=== PATIENT | male | born 1955 | race African-American/Black ===

== ENCOUNTER → 2018-03-14 | Outpatient (CLI) | payer OTHER ==
[~2018-03-14] MED LIST: ADVAIR HFA 230M12 GM INH; ALLOPURINOL 10100 M1; AUGMENTIN 875875 MG PO; FLONASE16 GM; METFORMIN HCL500 MG PO; METFORMIN HYDR100 GM; NEURONTIN 300M300 M2; NORCO 5-325 TA1 EACH PO; PHENERGAN 25 MG25 M1 PO; PROAIR HFA8.5 GM; SIMVASTATIN40 MG PO; SIMVASTATIN5 MG; ZANTAC 150MG T150 M1
== END ==
LOC: RAD 10:06
DX: N20.1 Calculus of ureter (principal); I10 Essential (primary) hypertension; E11.9 Type 2 diabetes mellitus without complications

== ENCOUNTER → 2018-08-30 | Outpatient (CLI) | payer OTHER ==
--- NOTE | 2018-08-30 13:41 | EKG ---
[address] [address] ELECTROCARDIOGRAM REPORT Name: CIPRIANOCLEVE Room #: REG CLCesar Fajardo#: [id number] Admission: 08/30/18 Attend Phys: Leann Roach MD Discharge: Date of : 53 Report #: [id number] THIS REPORT FOR: //name// [facility] Test Date: 2018-08-30 Test Time: 10:42:40 Pat Name: CLEVE COTA Department: Room: Gender: Regulatory Affairs Associate: Troy GOODMAN : 1955 Requested By: Leann Roach Order Number: [id number] MD: Jono Wheat Measurements Intervals [place] Rate: 90 P: 73 MO: 163 QRS: 37 QRSD: 92 T: -37 QT: 351 QTc: 430 Interpretive Statements Sinus rhythm Consider left atrial enlargement Left ventricular hypertrophy Nonspecific T abnormalities, inferior leads Compared to ECG 02/18/2018 18:00:07 No significant changes Electronically Signed On 08-30-2018 13:41:05 ACID CUTTER by Jono Wheat [email or web address] <ELECTRONICALLY SIGNED> By: Jono Wheat MD 08/30/18 1341 104 104 Jono Wheat MD /BHARATH
== END ==
LOC: CV 09:55
DX: Z01.818 Encounter for other preprocedural examination (principal); I51.7 Cardiomegaly; E11.9 Type 2 diabetes mellitus without complications

== ENCOUNTER → 2020-12-13 | Outpatient (CLI) | payer OTHER | LOC: SJCVC 13:56 | PROVIDERS: ATTEND Internal Medicine | DX: R94.31 Abnormal electrocardiogram [ECG] [EKG] (principal); R06.00 Dyspnea, unspecified; I44.7 Left bundle-branch block, unspecified; E78.5 Hyperlipidemia, unspecified; E11.9 Type 2 diabetes mellitus without complications; J44.9 Chronic obstructive pulmonary disease, unspecified; G47.30 Sleep apnea, unspecified; Z79.84 Long term (current) use of oral hypoglycemic drugs; Z79.899 Other long term (current) drug therapy; Z87.891 Personal history of nicotine dependence ==

== ENCOUNTER → 2020-12-27 | Outpatient (CLI) | payer OTHER | LOC: SJCVCIMAG 07:30 | PROVIDERS: ATTEND Internal Medicine | DX: I08.3 Combined rheumatic disorders of mitral, aortic and tricuspid valves (principal); I44.7 Left bundle-branch block, unspecified; I50.22 Chronic systolic (congestive) heart failure; I42.9 Cardiomyopathy, unspecified; E78.5 Hyperlipidemia, unspecified; E11.9 Type 2 diabetes mellitus without complications; J44.9 Chronic obstructive pulmonary disease, unspecified; J45.909 Unspecified asthma, uncomplicated; I34.0 Nonrheumatic mitral (valve) insufficiency; Z87.891 Personal history of nicotine dependence; Z79.899 Other long term (current) drug therapy; R06.00 Dyspnea, unspecified ==

== ENCOUNTER → 2021-01-12 | Outpatient (CLI) | payer OTHER ==
[~2021-01-12] VITALS: Ht 180.3 cm; Wt 95.7 kg
[~2021-01-12] MED LIST changes: +CARVEDILOL6.25 M1 PO; +COZAAR 25 MG TA25 M1 PO; +FLOMAX0.4 MG PO; +KLOR-CON M2020 MEQ PO; +SIMVASTATIN80 MG PO; +TORSEMIDE20 MG PO; +VIAGRA100 MG PO; +[UNRECOGNIZED DRUG - OTHER] PO
[2021-01-12 07:18] VITALS: BP 125/75
[2021-01-12 07:44] LABS: HEMATOCRIT 42.9 % (42.0-52.0); HEMOGLOBIN 14.3 gm/dL (14.0-18.0); MCH 29.9 pg (26.0-34.0); MCHC 33.3 g/dL (28.0-37.0); RBC 4.76 mil/uL (4.50-6.00); RDW 14.1 % (10.5-14.5); WBC 5.5 thou/uL (4.0-11.0)
--- NOTE | 2021-01-12 12:57 | CATHLAB ---
[facility] [place] [address] INVASIVE PROCEDURE REPORT Name: CLEVE COTA Room #: REG DULCE Carvajal.#: [id number] Admission: 01/12/21 Attend Phys: Carlos Farley MD, Discharge: Date of : 53 Report #: [id number] THIS REPORT FOR: cc: Héctor Martell MD, Neal A. MD Lundgren, Craig H. MD [facility] ~ APPROVED REPORT Study performed: 01/12/2021 08:28:09 Patient Details Patient Status: Out-Patient Room #: Event Personnel Jacky Holloway Dexter RN, Taya Taylor RTR, Emmy Reyes RTR Procedures Performed [facility], Art Access- R femoral artery, Initial MOD Sed Same Phys/QHP Indication Chest pain Procedure Narrative The patient was brought electively to the Cardiac Catheterization Laboratory and was prepped and draped in a sterile manner. A 6 FR sheath was inserted into the RFA. Coronary angiography was performed using coronary diagnostic catheters. The right coronary system was accessed and visualized with a 6 FR JR4 catheter. The left coronary system was accessed and visualized with a 6 FR JL4 catheter. The left ventricle was accessed and visualized with a 6 FR ANGLED PIGTAIL catheter. Left ventricular/Aortic Valve gradient assessed via catheter pullback. Left ventriculogram was performed in 30 degree projection. Closure device was deployed with a 6 Fr MYNXGRIP. There was no hematoma. Intraoperative Conscious Sedation Sedation start time: 9:19 Case end Time: 9:44 Fentanyl 50.0 mcg Versed 1.0 mg Fluoro Time: 1.8 minutes Dose: DAP 6150.08 cGycm2 798 mGy [facility] [place] [address] INVASIVE PROCEDURE REPORT Name: CLEVE COTA Room #: REG [facility]#: [id number] Admission: 01/12/21 Attend Phys: Carlos Farley, Discharge: Date of : 53 Report #: [id number] Contrast Type and Amount: OMNIIPAQUE 110ml Coronary Angiography The patient's coronary anatomy is right dominant. Diagnostic Cath Left Main Normal left main LAD Normal left anterior descending Diagonal 1 Small, normal first diagonal branch Diagonal 2 Normal second diagonal branch Diagonal 3 Normal third diagonal branch Circumflex Large but nondominant circumflex. OM1 Large first marginal branch, angiographically normal OM2 Large bifurcating second marginal branch, normal Right Coronary Dominant right coronary, angiographically normal R PDA Normal posterior descending Left Ventriculography The left ventricle is mildly dilated in size with abnormal contractility. The left ventricular ejection fraction is estimated to be 25-30%. Left ventricular wall motion abnormalities are not present. There is no mitral insufficiency. Hemodynamics The aortic pressure is 110 mmHg with a mean of 62 mmHg. The left ventricular pressure is 111/14 mmHg with a mean of 20 mmHg. The left ventricular end diastolic pressure is 116/17 mmHg. Pullback from the left ventricle to the aorta revealed no gradient across the aortic valve. Conclusion 1. Severe global left ventricular dysfunction. EF 25-30% 2. Normal left main 3. Normal coronary vasculature. Right coronary dominant circulation Recommendations Aggressive Medical Therapy <ELECTRONICALLY SIGNED> By: Carlos Farley MD, FACC 01/12/21 1256 1256 1256 Carlos Farley MD, FACC /INF
== END | disposition home or self-care (01) ==
LOC: CATH 01-05 07:37
PROVIDERS: ATTEND Internal Medicine
DX: R07.9 Chest pain, unspecified (principal); I25.10 Atherosclerotic heart disease of native coronary artery without angina pectoris; E11.9 Type 2 diabetes mellitus without complications; J44.9 Chronic obstructive pulmonary disease, unspecified; M10.9 Gout, unspecified; N40.0 Benign prostatic hyperplasia without lower urinary tract symptoms; Z98.890 Other specified postprocedural states; Z79.899 Other long term (current) drug therapy; Z87.19 Personal history of other diseases of the digestive system; Z87.891 Personal history of nicotine dependence; Z87.01 Personal history of pneumonia (recurrent)

== ENCOUNTER → 2021-04-15 | Outpatient (CLI) | payer OTHER | LOC: SJCVCIMAG 07:57 | PROVIDERS: ATTEND Internal Medicine | DX: R94.31 Abnormal electrocardiogram [ECG] [EKG] (principal); I34.0 Nonrheumatic mitral (valve) insufficiency; I44.7 Left bundle-branch block, unspecified; G47.30 Sleep apnea, unspecified; I50.22 Chronic systolic (congestive) heart failure; I42.9 Cardiomyopathy, unspecified; E78.5 Hyperlipidemia, unspecified; E11.9 Type 2 diabetes mellitus without complications; J44.9 Chronic obstructive pulmonary disease, unspecified; I73.9 Peripheral vascular disease, unspecified; Z87.891 Personal history of nicotine dependence; Z79.899 Other long term (current) drug therapy; Z79.2 Long term (current) use of antibiotics; Z79.84 Long term (current) use of oral hypoglycemic drugs; Z79.891 Long term (current) use of opiate analgesic ==

== ENCOUNTER 2021-05-12 06:27 | Observation (INO) | payer OTHER ==
[~2021-05-12] VITALS: Ht 180.3 cm; Wt 93.4 kg
[~2021-05-12 06:27] MED LIST changes: -ALLOPURINOL 10100 M1; +ALLOPURINOL 10100 M1 PO
[2021-05-12 07:28] VITALS: BP 119/66
[2021-05-12 07:33] LABS: ABSOLUTE NEUTROPHILS 2.5 thou/uL (1.4-8.2); BASOPHILS 0.8 % (0.0-2.0); EOSINOPHILS 2.9 % (0.0-3.0); HEMATOCRIT 40.7 % (42.0-52.0); HEMOGLOBIN 13.3 gm/dL (14.0-18.0); MCHC 32.7 g/dL (28.0-37.0); MCV 91.8 fL (80.0-100.0); MONOCYTES 8.4 % (1.0-8.0); PLATELET COUNT 195 thou/uL (150-400); POLYS 47.9 % (36.0-66.0); RBC 4.44 mil/uL (4.50-6.00); RDW 14.1 % (10.5-14.5); WBC 5.2 thou/uL (4.0-11.0)
[2021-05-12 07:34] LABS: POTASSIUM 3.9 mmol/L (3.5-5.1)
[2021-05-12 07:41] LABS: APTT 28.5 Seconds (24.5-32.8); INR 1.03; PROTIME 11.2 Seconds (10.5-12.1); TOTAL BILIRUBIN 0.6 mg/dL (0.2-1.0); TOTAL PROTEIN 7.4 g/dL (6.4-8.2)
--- NOTE | 2021-05-12 08:10 | EKG ---
[place] [address] [facility] [place] [address] ELECTROCARDIOGRAM REPORT Name: CLEVE COTA MATTHEW [id number] Admission: 05/12/21 Attend Phys: Jono Wheat MD Discharge: Date of : 53 Report #: [id number] [facility] Test Date: 2021-05-12 Test Time: 08:07:05 Pat Name: CLEVE COTA Department: Room: Gender: Civil Designer: GENNY : 1955 Requested By: Jono Wheat Order Number: [id number] MD: Carlos Farley Measurements Intervals [place] Rate: 69 P: 67 ME: 166 QRS: 6 QRSD: 168 T: -46 QT: 479 QTc: 514 Interpretive Statements Sinus rhythm Left bundle branch block Compared to ECG 08/30/2018 10:42:40 Left bundle-branch block now present Electronically Signed On 05-12-2021 8:10:19 CDT by Carlos Farley [email or web address] <ELECTRONICALLY SIGNED> By: Carlos Farley MD, [facility] 05/12/21809 08 6 Carlos Farley MD, FACC /EPI
[2021-05-12 11:55] VITALS: BP 113/71
[2021-05-12 15:35] VITALS: BP 102/57
--- NOTE | 2021-05-12 15:54 | NUR ---
TOOK OVER CARE FOR THIS PATIENT AT 0700. PT ON BEDREST UNTIL RIGHT GROIN ULTRASOUND COMPLETE. PATIENT VITAL SIGNS STABLE. PATIENT DENIES SHORTNESS OF BREATH OR CHEST PAIN. PATIENT DENIES PAIN, DIZZINESS, HEADACHE, OR FATIGUE. PATIENT'S SPOUSE PRESENT AT THIS TIME. DISCHARGE EDUCATION PROVIDED ON FOLLOW-UP CARE AND NEW MEDICATIONS. PATIENT DENIES ANY QUESTIONS AT THIS TIME. PATIENT DISCHARGED VIA WHEELCHAIR BY NURSING STAFF ACCOMPANIED BY SPOUSE VIA PERSONAL VEHICLE.
--- NOTE | 2021-05-12 15:57 | NUR ---
PATIENT TRANSFERRED TO CCU FROM POST-OP. PATIENT RESTING COMFORTABLY IN BED AT THIS TIME WITH SPOUSE PRESENT. VITAL SIGNS STABLE. PATIENT DENIES CHEST PAIN. PATIENT IS ON ROOM AIR; DENIES SHORTNESS OF AIR. DENIES HEADACHE, DIZZINESS, AND FATIGUE. PATIENT AxOx4 AND ANSWERS QUESTIONS APPROPRIATLEY. FALL PRECAUTIONS ARE IN PLACE AND CALL LIGHT WITHIN REACH.
[2021-05-12 19:10] VITALS: BP 128/64
[2021-05-12 23:44] VITALS: BP 136/84
[2021-05-13 04:37] VITALS: BP 142/79
[2021-05-13 04:38] VITALS: BP 142/79
--- NOTE | 2021-05-13 05:58 | NUR ---
Assumed pt's care this pm shift. Alert and oriented x4. VSS on RA. Home cpap at HS. Pacemaker site [employer], C/D/I. Pt slept well. Tylenol given x1 this shift for soreness at pacemaker incision site. L/arm immobilizer remained in place this shift. Pt makes need known. No s/sx of acute distress noted this shift. SCDs to BLE. Fall precaution in place. Call light within reach. Nursing to continue to monitor.
[2021-05-13 07:50] VITALS: BP 118/80
[2021-05-13 11:28] VITALS: BP 118/80
[2021-05-13 12:00] VITALS: BP 111/79
[2021-05-13 12:04] VITALS: BP 118/80
--- NOTE | 2021-05-13 13:42 | NUR ---
TOOK OVER CARE OF THIS PATIENT AT 0700. PATIENT RESTING COMFORTABLY IN BED AT THIS TIME. PATIENT ON ROOM AIR; DENIES SHORTNESS OF AIR. PATIENT DENIES CHEST PAIN. PACEMAKER WAS INTEGRATED THIS MORNING AND PATIENT SPOKE WITH CARDIOLOGY NURSE PRACTITIONER REGARDING FOLLOW-UP CARE. FAMILY MEMBER PRESENT AT THIS TIME FOR DISCHARGE EDUCATION. EDUCATION PROVIDED TO PATIENT REGARDING FOLLOW-UP CARE AND STROKE EDUATION. PATIENT DISCHARGED VIA WHEELCHAIR WITH FAMILY MEMBER PRESENT AND NURSING STAFF VIA PERSONAL VEHICLE.
--- NOTE | 2021-05-18 13:05 | P ---
[facility] [place] [address] PROCEDURE REPORT Name: CLEVE COTA Room #: 212-P [facility] Tomi Fajardo#: [id number] Admission: 05/12/21 Attend Phys: Jono Wheat MD Discharge: 05/13/21 Date of : 53 Report #: [id number] THIS REPORT FOR: cc: Héctor Martell MD, Neal A. MD Couchonnal,Jono Rosas MD ~ DATE OF SERVICE: 05/12/2021 PROCEDURE: Bi-V ICD implantation. PREOPERATIVE DIAGNOSES: 1. Nonischemic cardiomyopathy. 2. Chronic left ventricular systolic heart failure. 3. [place] [employer] functional class 3 heart failure symptoms. 4. Left bundle branch block. POSTOPERATIVE DIAGNOSES: 1. Nonischemic cardiomyopathy. 2. Chronic left ventricular systolic heart failure. 3. [place] [employer] functional class 3 heart failure symptoms. 4. Left bundle branch block. HISTORY: The patient is a 65-year-old male with a history of a nonischemic cardiomyopathy, EF of less than 35% with [place] [employer] functional class 3 heart failure symptoms and a left bundle branch block with a QRS duration of 160 milliseconds, who has been on optimal medical therapy for over three months. He is here for biventricular ICD implantation for primary prevention of sudden cardiac . ANESTHESIA: The patient underwent MAC anesthesia with no anesthesia related complications. DESCRIPTION OF PROCEDURE: The patient underwent informed consent. We discussed the details of the procedure including the risks, which include but not limited to bleeding, infection, vascular damage, cardiac perforation, pneumothorax. He understood these risks and is willing to proceed. The patient was brought to the EP laboratory in a fasting and sedated state, prepped and draped in standard fashion. He underwent a venogram showing patency of left axillary vein and received IV antibiotics prior to initiation of the procedure. Next, lidocaine was injected below the level of left clavicle. Incision was made, pocket was created over the prepectoral fascia and access was obtained 3 times of left axillary vein using the extrathoracic approach. Sheaths were positioned using the modified Seldinger technique. Next, RV lead and an atrial lead were positioned and sutured to the prepectoral fascia with adequate pacing and sensing thresholds. Next, when I was attempting to advance [facility] [address] [place] [address] PROCEDURE REPORT Name: CLEVE COTA MATTHEW Room #: 212-P [facility] Tomi Fajardo#: [id number] Admission: 05/12/21 Attend Phys: Jono Wheat MD Discharge: 05/13/21 Date of : 53 Report #: [id number] the coronary sinus guide sheath, this dislodged the atrial lead. In fact, the atrial lead dislodged several times when I would advance the coronary guide sheath. Eventually, I decided to go ahead and position the LV lead first, which I was able to place using a coronary guide sheath and an inner sheath into the anterolateral branch with adequate pacing and sensing thresholds. Before splitting the outer sheath, I repositioned the atrial lead and then I split the coronary sinus guide sheath and the 9-[place] short sheath that was at the subclavian position. All leads were tested and found to be functioning normally and all leads were sutured to the prepectoral fascia. Next, the device was connected to the leads. Tug test performed. Pocket was irrigated with vancomycin and pocket closed in 2 layers using 2-0 for the deep layer, 3-0 for the middle layer and surgical glue was placed to outer skin layer. The patient awoke neurologically and hemodynamically intact. No complications. No significant bleeding. The implanted device and leads were manufactured by [employer]. The device was a model #[id number], serial #[id number]. The atrial lead was a 5076, 52 cm, serial number [id number]. RV lead was a 6935, 62 cm, serial #[id number]. The LV lead was a 49, LV lead was a 4298, serial #[id number]. Atrial lead demonstrated P waves of 4.3 millivolts, pacing impedance 546 ohms, pacing threshold 0.4 volts at 0.5 milliseconds. The RV lead demonstrated R waves of 12.8 millivolts, pacing impedance of 770 ohms, and pacing threshold was 0.4 volts at 0.5 milliseconds. The LV lead demonstrated a pacing impedance of 963 ohms, pacing threshold 0.4 volts at 0.5 milliseconds. Pacing from the LV1-LV2 pacing configuration. There was no diaphragmatic stimulation at 10 volts, pacing. The device was programmed to the DDDR 60-130 mode with the LV lead programmed to pace 20 milliseconds prior to the LV lead, which resulted in a QRS of 115 milliseconds, improved from 160 milliseconds at baseline. The VT zone was set at 180-220 beats per minute with three rounds of burst followed by 3 rounds of ramp followed by max output shocks. VF zone was set at greater than 220 beats per minute with ATP while charging followed by max output shocks. CONCLUSION: 1. Successful BiV ICD implantation. 2. Satisfactory atrial, right ventricular, and left ventricular pacing and sensing thresholds. <ELECTRONICALLY SIGNED> By: Jono Wheat MD 05/18/21 1305 1249 2152 Jono Wheat MD /noah
== END 2021-05-13 14:00 | disposition home or self-care (01) ==
LOC: 2N 06:27 → CATH 06:27 → 2N 16:26
PROVIDERS: ADMIT Internal Medicine Cardiovascular Disease; ATTEND Internal Medicine Cardiovascular Disease
DX: I42.8 Other cardiomyopathies (principal); I11.0 Hypertensive heart disease with heart failure; I50.22 Chronic systolic (congestive) heart failure; Z20.822 Contact with and (suspected) exposure to COVID-19; I44.7 Left bundle-branch block, unspecified; E11.9 Type 2 diabetes mellitus without complications; G47.33 Obstructive sleep apnea (adult) (pediatric); E78.5 Hyperlipidemia, unspecified; Z79.84 Long term (current) use of oral hypoglycemic drugs; Z79.899 Other long term (current) drug therapy
CPT/HCPCS: 70005

== ENCOUNTER → 2021-08-16 | Outpatient (CLI) | payer OTHER | LOC: SJCVC 08:49 | PROVIDERS: ATTEND Internal Medicine Cardiovascular Disease | DX: R94.31 Abnormal electrocardiogram [ECG] [EKG] (principal); I45.4 Nonspecific intraventricular block; I50.22 Chronic systolic (congestive) heart failure; I44.7 Left bundle-branch block, unspecified; I42.9 Cardiomyopathy, unspecified; G47.30 Sleep apnea, unspecified; Z95.810 Presence of automatic (implantable) cardiac defibrillator; Z79.84 Long term (current) use of oral hypoglycemic drugs; Z79.899 Other long term (current) drug therapy; Z87.891 Personal history of nicotine dependence ==

== ENCOUNTER 2021-08-22 20:57 | Emergency (ER) | payer OTHER ==
[~2021-08-22] VITALS: Ht 180.3 cm; Wt 93.4 kg
[2021-08-23 01:57] LABS: BE(vivo) -2.6 mmol/L (-2 to +3); HCO3 21.5 mmol/L (22.0-26.0); PCO2 35.4 mmHg (35.0-45.0); PO2 80.2 mmHg (80.0-100.0); pH 7.402 (7.360-7.450)
[2021-08-23 02:49] LABS: ABSOLUTE NEUTROPHILS 3.6 thou/uL (1.4-8.2); EOSINOPHILS 2.3 % (0.0-3.0); HEMOGLOBIN 13.4 gm/dL (14.0-18.0); LYMPHOCYTES 38.4 % (24.0-44.0); MCH 30.6 pg (26.0-34.0); MCHC 33.5 g/dL (28.0-37.0); MCV 91.2 fL (80.0-100.0); MONOCYTES 9.1 % (1.0-8.0); PLATELET COUNT 191 thou/uL (150-400); POLYS 49.2 % (36.0-66.0); RBC 4.39 mil/uL (4.50-6.00); RDW 14.3 % (10.5-14.5); WBC 7.3 thou/uL (4.0-11.0)
[2021-08-23 02:57] LABS: CALCIUM 9.1 mg/dL (8.5-10.1); CREATININE 1.1 mg/dL (0.7-1.3); POTASSIUM 3.9 mmol/L (3.5-5.1)
[2021-08-23] MEDS ORDERED: MELOXICAM15 MG PO (04:06)
[2021-08-23 04:14] VITALS: BP 151/90
== END 2021-08-23 04:27 | disposition home or self-care (01) ==
LOC: ER 20:57
PROVIDERS: Emergency Medicine
DX: R51.9 Headache, unspecified (principal); I10 Essential (primary) hypertension; E11.9 Type 2 diabetes mellitus without complications; J44.9 Chronic obstructive pulmonary disease, unspecified; Z79.899 Other long term (current) drug therapy

== ENCOUNTER → 2021-08-31 | Outpatient (CLI) | payer OTHER ==
[~2021-08-31] MED LIST changes: +MELOXICAM15 MG PO
== END ==
LOC: RAD 07:27
PROVIDERS: ATTEND Internal Medicine
DX: R06.00 Dyspnea, unspecified (principal); M47.814 Spondylosis without myelopathy or radiculopathy, thoracic region

== ENCOUNTER → 2021-09-05 | Outpatient (CLI) | payer OTHER | LOC: CAT 08:39 | PROVIDERS: ATTEND Family Medicine | DX: G44.52 New daily persistent headache (NDPH) (principal) ==

== ENCOUNTER 2021-09-19 15:00 | Emergency (ER) | payer OTHER ==
[~2021-09-19] VITALS: Ht 180.3 cm; Wt 96.2 kg
[2021-09-19] MEDS ORDERED: MEDROLDOSEPACK PO (16:06)
[2021-09-19 16:21] VITALS: BP 164/95
== END 2021-09-19 16:22 | disposition home or self-care (01) ==
LOC: ER 15:00
DX: J32.9 Chronic sinusitis, unspecified (principal); I10 Essential (primary) hypertension; E11.9 Type 2 diabetes mellitus without complications; M10.9 Gout, unspecified; J44.9 Chronic obstructive pulmonary disease, unspecified; Z79.51 Long term (current) use of inhaled steroids; Z79.84 Long term (current) use of oral hypoglycemic drugs; Z79.899 Other long term (current) drug therapy